=== PATIENT | female | born 2000 | race Caucasian/White ===

== ENCOUNTER → 2023-05-25 08:22 | Outpatient (REF) | payer BC, SELFPAY | LOC: RAD 08:22 | PROVIDERS: ATTENDING PHYSICIAN Urology | DX: N30.10 Interstitial cystitis (chronic) without hematuria (principal); M62.89 Other specified disorders of muscle; N39.0 Urinary tract infection, site not specified; N94.819 Vulvodynia, unspecified | CPT/HCPCS: 76856; 76857 ==

== ENCOUNTER 2023-11-22 06:55 | Emergency (ER) | payer BC, OTHER, SELFPAY ==
[2023-11-22 06:57] VITALS: BP 150/92
--- NOTE | 2023-11-22 07:19 | ED.GENMED ---
History of Present Illness
General
Chief Complaint: Jaw Pain
Source: patient
Exam Limitations: none
Time Seen by Provider: 11/22/23 07:10
History of Present Illness
History of Present Illness:
23-year-old female presents complaining of jaw pain. She states she was hit on the left side of the jaw with a field hockey ball during practice today and felt something go out of place. Since then she has felt a clicking on the right side of her
jaw. She feels that her teeth are malaligned. She is having trouble speaking because of that. No headache or neck pain. No other
Phy Exam
Physical Exam
Physical Exam:
General: Well-appearing female no acute respiratory distress
HEENT: Normocephalic atraumatic tender over the left side of the jaw as well as the right TMJ. No obvious visible or palpable deformity. Patient is able to close her mouth. She is able to open her mouth about 2 finger breaths.
Musculoskeletal exam: Cervical spine is nontender
Neurologic: Alert and oriented
Course
Orders/Labs/Results
Orders:
Orders
11/22/23 07:19
Panelipse CR [PX Panelipse] Urgent
Comment:
Reason For Exam: jaw pain
Vital Signs
Initial and Last Documented VS:
Initial Vital Signs
Pulse Resp BP Pulse Ox
71 18 150/92 99
11/22/23 06:57 11/22/23 06:57 11/22/23 06:57 11/22/23 06:57
Last Documented Vital Signs
Pulse Resp BP Pulse Ox
68 16 126/74 98
11/22/23 08:40 11/22/23 08:40 11/22/23 08:40 11/22/23 08:40
MDM/Problems Addressed
Differential Diagnosis Includes:
Jaw pain after trauma. Consider fracture dislocation versus contusion. Panorex x-rays ordered
*Critical Care Note
Total Time (30-74mins, 75-104mins- exclusive of procedures): Not Applicable
Update Note
Update Note:
X-rays of the mandible are negative for acute fracture or dislocation. There is a possibility patient may have dislocated and reduced on its own. She does feel clicking when she opens her mouth. Question possible soft tissue injury in the TMJ.
Recommended anti-inflammatories and follow-up
ED Attending Note
-
Portions of this chart may have been created with voice recognition software.� Occasional wrong word or��sound alike� substitutions may have occurred due to the inherent limitations of voice recognition software.
Discharge Plan
Departure
Patient Disposition: Home (Routine Discharge)
Date of Disposition: 11/22/23
Time of Disposition: 08:56
Patient with high blood pressure during this ER visit?: No
Discharge Problem:
Jaw pain
Instructions: Temporomandibular Joint (TMJ) Disorders (DC)
Prescriptions:
No Action
cefixime 400 mg capsule
400 mg PO DAILY 10 Days Qty: 10 0RF
ibuprofen 600 mg tablet
600 mg PO QID PRN (Reason: pain) Qty: 20 0RF
ondansetron 4 mg tablet,disintegrating
4 mg PO QID PRN (Reason: nausea and vomiting) Qty: 20 0RF
Referrals:
NONE,* [Family Provider] -
Activity Restrictions/Additional Instructions:
Continue with ibuprofen and ice for pain or swelling. Return if worse otherwise follow-up with dentist
Interventions
Interventions:
*Risk Screen - Suicide Last Done: 11/22/23 06:57
*General Assessment Last Done: 11/22/23 06:57
*Neglect/Abuse Screening Last Done: 11/22/23 06:57
ED- Fall Risk Assessment Last Done: 11/22/23 08:40
*ED COVID-19 Vaccine History Last Done: 11/22/23 07:01
ED-EENT Assessment Last Done: 11/22/23 08:05
ED- Cardiac Assessment Last Done: 11/22/23 08:05
Discharge Date and Time
Print Language: TURKMEN
[2023-11-22 08:40] VITALS: BP 126/74
[2023-11-22 09:08] VITALS: BP 121/75
== END 2023-11-22 09:09 | disposition home or self-care (01) ==
LOC: EMR 06:55
PROVIDERS: EMERGENCY PHYSICIAN Student in an Organized Health Care Education/Training Program
DX: M26.609 Unspecified temporomandibular joint disorder, unspecified side (principal)
CPT/HCPCS: 99283; 70355

== ENCOUNTER 2024-02-05 06:58 | Day surgery (SDC) | payer BC, OTHER, SELFPAY ==
[2024-02-05] VITALS (14 sets, daily range): BP systolic 121–148; BP diastolic 60–95; BMI 23.2; BMI 22.9
[2024-02-05] MEDS: Pyridium 200 MG PO (08:38)
[2024-02-05] MEDS: EMEND 40 MG PO (08:38)
[2024-02-05] MEDS: BENADRYL 25 MG IV (12:45)
[2024-02-05] MEDS: VENTOLIN NEBULES 2.5 MG INH (12:46)
[2024-02-05] MEDS: MOTRIN 600 MG PO (14:48)
== END 2024-02-05 15:00 | disposition home or self-care (01) ==
LOC: SDS 06:58
PROVIDERS: ATTENDING PHYSICIAN Obstetrics & Gynecology
DX: N80.00 Endometriosis of the uterus, unspecified (principal); N80.351 Endometriosis of the right pelvic sidewall, unspecified depth; K66.0 Peritoneal adhesions (postprocedural) (postinfection); N30.10 Interstitial cystitis (chronic) without hematuria
CPT/HCPCS: 58662; 88305; 88342; 88360

== ENCOUNTER 2024-02-11 22:49 | Emergency (ER) | payer BC, SELFPAY ==
--- NOTE | 2024-02-11 23:36 | ED.GENMED ---
History of Present Illness
General
Chief Complaint: Allergic Reaction
Source: patient
Time Seen by Provider: 02/11/24 23:37
History of Present Illness
History of Present Illness:
23-year-old female presenting to the emergency department for evaluation 2 days status post laparoscopy for endometriosis after she noticed hives across her abdomen with increased pruritus which continued despite Benadryl. Patient went back to
[facility] today who prescribed a topical steroid but patient states seem to get worse after the steroid. She denies any fevers or infectious symptoms, respiratory difficulties, difficulty swallowing or any other concerns. She did notice the rash
slightly on her left volar wrist however the main portion of the rash is across the abdomen. No history of similar. No other concerns presently. Patient believes that her rash is likely from the Dermabond placed over the incision sites from
surgery.
Past History
Past History
ED Past Medical History: Other (Endometriosis)
ED Past Surgical History: Gynecological
Social History
Tobacco: Non-smoker
Alcohol: None
Drug: None
Personal: Single
Living: with family
Review of Systems
Review of Systems
All Other Systems: ROS reviewed and negative except as documented in HPI and ROS
Phy Exam
Physical Exam
Physical Exam:
GENERAL: Alert , in no apparent distress
EYE: conjunctiva clear
NECK: Supple
ENT: o/p clr, mmm.
CARDIAC: Regular rate and rhythm
LUNGS: Clear breath sounds bilaterally, no acute respiratory distress, no wheezes/rales/rhonchi
NEUROLOGICAL: Alert and oriented
SKIN: Warm and dry, generalized hives scattered across the abdomen with deeper areas of erythema overlying incision sites and Dermabond
MUSCULOSKELETAL: well perfused.
PSYCH: Normal and appropriate interaction.
Scores
Heart Failure Risk
Heart Failure Risk Score: Not Applicable
Heart Score for Chest Pain Patients
STEMI patient?: Not applicable
Withdrawal Assessment of Alcohol
Withdrawal Assessment Completed?: Not applicable
Course
Orders/Labs/Results
Orders:
Orders
02/11/24 23:36
Famotidine [Pepcid] 20 mg PO NOW STA
Prednisone [Deltasone] 50 mg PO NOW STA
MDM/Problems Addressed
Differential Diagnosis Includes:
Urticaria, no signs of infectious etiology, no current evidence to suggest angioedema
MDM/Problems Addressed:
23-year-old female presenting to the emergency department for evaluation following suspected allergic reaction to Dermabond following laparoscopic for endometriosis 2 days ago. No evidence for respiratory distress or angioedema. Urticaria
throughout the abdomen. Will start on a steroid, Pepcid and Benadryl follow-up with surgery as needed. Patient is otherwise stable for discharge home
*Critical Care Note
Total Time (30-74mins, 75-104mins- exclusive of procedures): Not Applicable
ED Attending Note
-
Portions of this chart may have been created with voice recognition software.� Occasional wrong word or��sound alike� substitutions may have occurred due to the inherent limitations of voice recognition software.
Discharge Plan
Departure
Patient Disposition: Home (Routine Discharge)
Date of Disposition: 02/11/24
Time of Disposition: 23:43
Patient with high blood pressure during this ER visit?: No
Discharge Problem:
Urticaria
Instructions: Hives (DC)
Prescriptions:
New
prednisone 50 mg tablet
50 mg PO DAILY Qty: 5 0RF
famotidine [Pepcid] 20 mg tablet
20 mg PO BID Qty: 20 0RF
No Action
norgestimate-ethinyl estradiol [Estarylla] 0.25-35 mg-mcg tablet
1 tab PO DAILY
phenazopyridine 200 mg tablet
200 mg PO PRN PRN (Reason: Bladder Pain)
amitriptyline 10 mg tablet
10 - 20 mg PO HS
hydroxyzine HCl 10 mg Tablet
10 mg PO HS
albuterol sulfate 90 mcg/actuation HFA aerosol inhaler
2 puff INHALATION PRN PRN (Reason: SOB)
Interventions
Interventions:
*Risk Screen - Suicide Last Done: 02/11/24 23:35
*General Assessment Last Done: 02/11/24 23:35
*Neglect/Abuse Screening Last Done: 02/11/24 23:35
ED- Fall Risk Assessment Last Done: 02/11/24 23:35
*ED COVID-19 Vaccine History Last Done: 02/11/24 23:35
ED- Cardiac Assessment Last Done: 02/11/24 23:35
ED- Pulmonary Assessment Last Done: 02/11/24 23:35
ED-Skin Assessment Last Done: 02/11/24 23:35
Discharge Date and Time
Print Language: FRISIAN
[2024-02-11] MEDS: PEPCID 20 MG PO (23:42)
[2024-02-11] MEDS: DELTASONE 50 MG PO (23:44)
[2024-02-11 23:45] VITALS: BP 112/75
== END 2024-02-11 23:52 | disposition home or self-care (01) ==
LOC: EMR 22:49
PROVIDERS: EMERGENCY PHYSICIAN Student in an Organized Health Care Education/Training Program
DX: L50.9 Urticaria, unspecified (principal); L29.9 Pruritus, unspecified; Z98.890 Other specified postprocedural states; Z88.0 Allergy status to penicillin; Z91.040 Latex allergy status
CPT/HCPCS: 99283